=== PATIENT | female | born 1960 | race Caucasian/White ===

== ENCOUNTER 2019-03-05 08:04 | Outpatient (CLI) | payer BC ==
--- NOTE | 2019-03-05 08:44 | BD ---
DEXA bone density examination 03/05/2019 HISTORY: 58-year-old postmenopausal female for screening COMPARISON: None FINDINGS: L1--bone mineral density 0.73 g/sq cm; T score -2.4 L2--bone mineral density 0.819 g/sq cm; T score -1.9 L3--bone mineral density 0.785 g/sq cm; T score -2.7 L4--bone mineral density 0.873 g/sq cm; T score -1.7 Total L1-L4--bone mineral density 0.803 g/sq cm; T score -2.2 Left femoral neck--bone mineral density0.627; T score -2.0 Total proximal left femur--bone mineral density 0.815; T score -1.0 IMPRESSION: 1. Moderate osteopenia of the lumbar spine and left femoral neck. 2. This patient has a 10 year WHO fracture risk of a major osteoporotic fracture of 15% and of a hip fracture of 0.9%.
== END 2019-03-05 08:05 | disposition home or self-care (01) ==
LOC: BICMAMMO 08:04
PROVIDERS: ATTEND Internal Medicine Rheumatology
DX: Z78.0 Asymptomatic menopausal state (principal); M85.89 Other specified disorders of bone density and structure, multiple sites
CPT/HCPCS: 77080

== ENCOUNTER 2019-06-06 11:20 | Outpatient (CLI) | payer BC ==
--- NOTE | 2019-06-12 16:17 | MMO ---
Bilateral MAMMO Bilat Screen [facility]. CLINICAL HISTORY: Patient is 59 years old and is seen for screening. The patient has no family history of breast cancer. The patient has no personal history of cancer. VIEWS: The views performed were: bilateral craniocaudal with tomosynthesis and bilateral mediolateral oblique with tomosynthesis. FILMS COMPARED: The present examination has been compared to prior imaging studies performed at [facility] on 08/21/2015, 01/13/2017 and 01/04/2018. MAMMOGRAM FINDINGS: The breasts are heterogeneously dense, which could obscure a lesion on mammography. There are no suspicious masses, suspicious calcifications, or new areas of architectural distortion. IMPRESSION: THERE IS NO MAMMOGRAPHIC EVIDENCE OF MALIGNANCY. A ROUTINE FOLLOW-UP MAMMOGRAM IN 1 YEAR IS RECOMMENDED. THE RESULTS OF THIS EXAM WERE SENT TO THE PATIENT. ACR BI-RADS Category 1 - Negative MAMMOGRAPHY NOTE: 1. A negative mammogram report should not delay a biopsy if a dominant of clinically suspicious mass is present. 2. Approximately 10% to 15% of breast cancers are not detected by mammography. 3. Adenosis and dense breasts may obscure an underlying neoplasm. Reported by: MILDRED CORMIER MD Electonically Signed: [id number]
== END 2019-06-06 11:21 | disposition home or self-care (01) ==
LOC: BICMAMMO 11:20
PROVIDERS: ATTEND Nurse Practitioner Family
DX: Z12.31 Encounter for screening mammogram for malignant neoplasm of breast (principal)
CPT/HCPCS: 77063; 77067

== ENCOUNTER 2019-10-30 11:34 | Outpatient (CLI) | payer BC ==
--- NOTE | 2019-10-30 13:12 | RAD ---
EXAM: XR Lumbar Spine Min 4 View PROVIDED CLINICAL HISTORY: Back pain COMPARISON: None FINDINGS: 5 nonrib-bearing lumbar-type vertebral bodies are noted. There is grade 1 anterolisthesis of L4 on L5 . Lumbar alignment appears otherwise normal. Vertebral body heights appear preserved. Pedicles appear intact. The oblique views demonstrate no evidence for pars defects. Vascular calcifications ar e seen. Lower lumbar spine facet arthritis changes are noted. IMPRESSION: Lower lumbar spine facet degeneration with grade 1 anterolisthesis of L4 on L5.
== END 2019-10-30 11:35 | disposition home or self-care (01) ==
LOC: BICRAD 11:34
PROVIDERS: ATTEND Physician Assistant
DX: M54.5 Low back pain (principal); M47.816 Spondylosis without myelopathy or radiculopathy, lumbar region; M43.16 Spondylolisthesis, lumbar region
CPT/HCPCS: 72110

== ENCOUNTER 2021-07-06 13:55 | Outpatient (CLI) | payer BC | END 2021-07-06 13:56 | disposition home or self-care (01) | LOC: BICMAMMO 13:55 | PROVIDERS: ATTEND Internal Medicine Rheumatology | DX: Z12.31 Encounter for screening mammogram for malignant neoplasm of breast (principal); M81.0 Age-related osteoporosis without current pathological fracture; M85.89 Other specified disorders of bone density and structure, multiple sites | CPT/HCPCS: 77063; 77067; 77080 ==

== ENCOUNTER 2022-02-18 08:06 | Outpatient (CLI) | payer BC | END 2022-02-18 08:07 | disposition home or self-care (01) | LOC: BICULT 08:06 | PROVIDERS: ATTEND Internal Medicine Rheumatology | DX: R74.01 Elevation of levels of liver transaminase levels (principal); K76.0 Fatty (change of) liver, not elsewhere classified | CPT/HCPCS: 76705 ==

== ENCOUNTER 2022-10-14 11:27 | Outpatient (CLI) | payer BC | END 2022-10-14 11:28 | disposition home or self-care (01) | LOC: BICMAMMO 11:27 | PROVIDERS: ATTEND Nurse Practitioner Family | DX: Z12.31 Encounter for screening mammogram for malignant neoplasm of breast (principal) | CPT/HCPCS: 77063; 77067 ==

== ENCOUNTER 2024-08-15 11:26 | Outpatient (CLI) | payer BC | END 2024-08-15 11:27 | disposition home or self-care (01) | LOC: BICMAMMO 11:26 | PROVIDERS: ATTEND Nurse Practitioner Family | DX: Z12.31 Encounter for screening mammogram for malignant neoplasm of breast (principal); Z80.3 Family history of malignant neoplasm of breast | CPT/HCPCS: 77063; 77067 ==